=== PATIENT | female | born 1985 | race Asian ===

== ENCOUNTER → 2016-05-13 | Outpatient (CLI) | payer BC ==
[~2016-05-13] MED LIST: FERR1TAB23; LEVO50TA6 PO; PRENTAB26 PO
[2016-05-13 11:07] LABS: HEMATOCRIT 34.2 % (37-47)
[2016-05-13 11:41] LABS: GTGD 50 Grams
[2016-05-13 11:45] LABS: THYROID STIMULATING HORMONE 2.03 uIu/ml (0.300-4.500)
[2016-05-13 12:16] LABS: URINE APPEARANCE CLEAR (CLEAR); URINE BILIRUBIN NEG (NEG); URINE COLOR YELLOW; URINE EPITHELIAL CELL AUTO >30 /lpf (0-5); URINE NITRITE NEG (NEG); URINE PH 5.5 (4.5-7.5); UROBILINOGEN NEG (NEG)
[2016-05-13 12:28] LABS: MANUAL MICROSCOPIC REQUIRED? NO; REVIEW REQ? NO
== END | disposition home or self-care (01) ==
LOC: C.LAB1850 09:33
PROVIDERS: ATTEND Obstetrics & Gynecology
DX: Z34.03 Encounter for supervision of normal first pregnancy, third trimester (principal); O99.280 Endocrine, nutritional and metabolic diseases complicating pregnancy, unspecified trimester

== ENCOUNTER 2016-05-22 19:31 | Emergency (ER) | payer BC ==
[~2016-05-22] VITALS: Ht 162.6 cm; Wt 79.5 kg
[2016-05-22] MEDS ORDERED: ONDANSETRON INJ 2 MG/ML 2 ML VIAL IV STA ×2 (19:35→20:42)
[2016-05-22 19:36] VITALS: TEMP 36.9; Ht 162.6 cm; Wt 79.5 kg
[2016-05-22] MEDS ORDERED: SODIUM CHLORIDE 0.9% 1000ML 1,000 ML IV SCH ×2 (19:45→20:45)
[2016-05-22] MEDS ORDERED: PRENTAB26 PO (20:07)
[2016-05-22] MEDS ORDERED: LEVO50TA6 PO (20:08)
[2016-05-22] MEDS ORDERED: ONDANSETRON HOME PACK 4MG OD TAB PO ONE (22:15)
--- NOTE | 2016-05-22 22:20 | Progress Note ---
Progress Note Date of Service May 22, 2016. 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 She vomited dinner from last night early in the morning following by clear mucous and liquid through the day every 20min. Tried to keep herself hydrated by kept throwing up everytime. Had liquid diarrhea every 15min. No blood in stool. No bilious vomitus.No fever. Did have chills. No h/o eating outside or recent travel. Had some abdominal cramping. No urinary symptoms. No dizziness. ROS - otherwise negative except the findings in HPI PMHx - hypothyoid. Meds - levothyoxine, vitamins S/h - no tob, alc, drug abuse. f/h - DM O/e- Vitals - HR on admission to ER - 130, afebrile, 120/95, RR -18. General - no acute distress MM- dry, Heart RRR Lungs - CTA, no r/r/w Abd- gravid - 7mths. heart rate 165/min. NT/ND Ext - No e/c/c A/p - Dehydration secondary to acute gastroenteritis - likely viral- Given 2 L NSS and zofran 4mgs IV x 2. Tolerated well. Vitals signs stable on discharge with HR of 100 and BP 101/70. Home owen zofran given Instructed to keep hydrated and follow up in the office in 2-3 days.
[2016-05-22 22:29] VITALS: BP 127/77; PULSE 106; O2SAT 100
== END 2016-05-22 22:23 | disposition home or self-care (01) ==
LOC: EDBD 19:31 → C.EDA 19:32
DX: E86.0 Dehydration (principal); K52.9 Noninfective gastroenteritis and colitis, unspecified; Z3A.30 30 weeks gestation of pregnancy; R11.10 Vomiting, unspecified; R19.7 Diarrhea, unspecified

== ENCOUNTER → 2016-05-31 | Outpatient (CLI) | payer BC | END | disposition home or self-care (01) | LOC: C.LAB1850 08:08 | PROVIDERS: ATTEND Obstetrics & Gynecology | DX: O28.9 Unspecified abnormal findings on antenatal screening of mother (principal) ==

== ENCOUNTER 2016-07-04 09:32 | Observation (INO) | payer BC ==
[~2016-07-04] VITALS: Ht 162.6 cm; Wt 84.8 kg
[~2016-07-04 09:32] MED LIST changes: -FERR1TAB23
[2016-07-04] MEDS ORDERED: FERR1TAB23 (10:12)
[2016-07-04] MEDS ORDERED: IV FLUIDS COMPLETED PRN (10:15)
[2016-07-04 10:21] LABS: HEMATOCRIT 39.8 % (37-47); MEAN CORPUSCULAR HEMOGLOBIN 25.5 pg (25-34); MEAN PLATELET VOLUME 9.9 fL (7.4-10.4); PLATELET COUNT 221 K/uL (130-400); RED BLOOD COUNT 5.17 M/uL (4.2-5.4); WHITE BLOOD COUNT 8.43 K/uL (4.8-10.8)
[2016-07-04 10:39] LABS: MEAN CORPUSCULAR HGB CONC 33.2 g/dl (32-36)
[2016-07-04 10:41] VITALS: Ht 162.6 cm; Wt 84.8 kg
[2016-07-04 10:48] LABS: CREATININE 0.73 mg/dl (0.60-1.20); URIC ACID 5.4 mg/dl (2.6-7.2)
[2016-07-04 10:51] LABS: BASO % 0.5 %; BASO ABS # 0.04 K/uL (0-0.2); COMPLETE YES; EOS % 2.1 %; IG% 0.5 %; LYMPH % 29.7 %; LYMPH ABS # 2.44 K/uL (1.2-3.4); MONO % 7.2 %
[2016-07-04 11:22] LABS: URINE PROTIEN/CREAT RATIO 0.6 (0-0.2); URINE TOTAL PROTEIN 93.7 mg/dl (0-11.9)
--- NOTE | 2016-07-04 12:30 | HISTORY & PHYSICAL EXAMINATION ---
DATE OF ADMISSION: 07/04/2016 REASON FOR ADMISSION: Sent from office due to elevated blood pressure and proteinuria. 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 Her has been complicated by beta thalassemia related anemia and hypothyroidism. Additionally, she has been found to have an intrauterine growth restriction fetus with a current EFW in the less than 2nd percentile. She has been followed for this with twice weekly NSTs, AFIs, and Dopplers. The patient presented today for her at 36-week 1-day routine office visit and was found to have a reactive NST, a normal LISSETTE, and normal Dopplers; however, her urine protein dip was 2+ and her blood pressure was elevated at 136/90. The patient noted to Dr. Covington that she has had blood pressures at home of 140s systolic over 90s-100s diastolic. She has additionally been complaining of mild headaches that are sometimes relieved by Tylenol. She currently denies any right upper quadrant pain, any vision changes, or worsening edema. The patient was sent to labor and delivery for further evaluation because of her blood pressures and proteinuria. PAST MEDICAL HISTORY: Notable for varicella in childhood and beta thalassemia. PAST SURGICAL HISTORY: For an [facility] tendon repair. FAMILY HISTORY: Thalassemia, diabetes, hypertension, and kidney disease. The patient also notes that her own mother had preeclampsia in all of her pregnancies. 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 ALLERGIES: No known drugs. CURRENT MEDICATIONS: vitamins, iron, and Synthroid 50 mcg tablets. OBSTETRICAL HISTORY: She is a primigravida. PHYSICAL EXAMINATION: VITAL SIGNS: Blood pressures here in labor and delivery have ranged from 83 at the lowest to 103 at the highest, only 1 pressure being 83 diastolic, all the others being above 90 at least, systolics 130s to 140s. heart tones have been 145, moderate variability, good accels, no decelerations. [place] has been quiet. GENERAL: The patient is seated upright and generally alert and in no acute distress, however, visibly anxious. HEART: She has a regular heart rate and rhythm. LUNGS: Clear to auscultation bilaterally. ABDOMEN: Gravid and nontender. CERVICOVAGINAL: Deferred at the present time. ASSESSMENT AND PLAN: This is a 30-year-old G1, P0, at 36 weeks and 1 day, with preeclampsia on the basis of hypertensive blood pressures over the last 2-3 days, documented here in labor and delivery as well, and proteinuria, 2+ on dip in the office and spot measurement protein creatinine ratio here in the hospital of 0.6. Although her blood pressures and proteinuria are not in the severe range and her serum labs are currently reflective of normal liver and renal function, the patient's intrauterine growth restriction is severe and causes me to be concerned that she merits delivery at this time. I have discussed my thoughts with Vadim Gregg and Soraya of my own group and additionally contacted Dr. Murillo at [facility] at [facility] for his input. Dr. Murillo felt on review of the patient's information as above that she would merit delivery as early as 34 weeks gestational age, and therefore, would strongly recommend that she move to delivery now at 36 weeks and 03/23. The patient when notified of this voiced her concern about delivering in a community hospital setting where NICU is not immediately available, as her baby, although 36 weeks and 1 day, is severely growth restricted and not yet full term. At her wishes, I ask Dr. Murillo if he would be willing to accept the patient in transfer to [facility] and he has agreed to accept her. The patient was notified and is in agreement with transfer as well. Transfer will be arranged by ground transport and the patient is agreeable to this and understands it is being done at her request and that she would be welcome to stay and deliver here at [facility] but she currently feels uncomfortable with doing that. She is considered stable for transfer at this point and will be moving over to [facility] as transport is available.
--- NOTE | 2016-07-15 15:46 | DISCHARGE SUMMARY ---
COURSE OF CARE: Lakshmi is a 30-year-old 1, para 0 who presented with a at 36 weeks and 1 day, was diagnosed with preeclampsia based on a combination of office and hospital based workout and recommended to deliver because of this diagnosis. The patient was uncomfortable with the idea of delivering a 36-week 2-day intrauterine growth restricted fetus at a hospital without a neonatology unit and did ask to be discharge via transfer to [facility]. Her case was discussed with Dr. Murillo of maternal medicine at [place] who accepted her in transfer and she was placed in an ambulance for ground transport to [place]. At the time she departed us she was in stable condition as was her fetus.
== END 2016-07-04 14:31 | disposition short-term general hospital (02) ==
LOC: C.OPB 09:32 → C.LD 09:32 → C.OPB 09:50
PROVIDERS: ADMIT Obstetrics & Gynecology; ATTEND Obstetrics & Gynecology
DX: O14.93 Unspecified pre-eclampsia, third trimester (principal); O36.5930 Maternal care for other known or suspected poor fetal growth, third trimester, not applicable or unspecified; Z3A.36 36 weeks gestation of pregnancy; O99.284 Endocrine, nutritional and metabolic diseases complicating childbirth; E03.9 Hypothyroidism, unspecified; O99.013 Anemia complicating pregnancy, third trimester; Z82.49 Family history of ischemic heart disease and other diseases of the circulatory system; Z83.3 Family history of diabetes mellitus; Z84.1 Family history of disorders of kidney and ureter

== ENCOUNTER → 2016-10-10 | Outpatient (CLI) | payer BC ==
[~2016-10-10] MED LIST changes: +FERR1TAB23
== END | disposition home or self-care (01) ==
LOC: C.LAB1850 16:53
PROVIDERS: ATTEND Obstetrics & Gynecology
DX: O99.280 Endocrine, nutritional and metabolic diseases complicating pregnancy, unspecified trimester (principal)